=== PATIENT | female | born 1975 | race Caucasian/White ===

== ENCOUNTER 2016-10-04 14:18 | Emergency (ER) | payer MEDICAID ==
[~2016-10-04] VITALS: Ht 165.1 cm; Wt 89.4 kg
[~2016-10-04 14:18] MED LIST: TRAM50TA2
[2016-10-04 14:31] VITALS: BP 136/68; PULSE 84; RESP 15; TEMP 97.8; O2SAT 97
--- NOTE | 2016-10-04 15:54 | NUR ---
BROUGHT BACK TO BED #6 AND REPORT GIVEN TO LUANNE
--- NOTE | 2016-10-04 16:15 | NUR ---
Pt came into the ER in stable condition. Pt c/o headache and dizziness x3 wks. Pt stated that is under a lot of stress at work. Pt stated that she was at a staff meeting and felt like she was going to pass out. Pt denies having any medical condition at this time time. Pt stated that she has been drinking more water than usually to help with hydration. -sob -chest pain. No acute distress noted at this time, will continue to monitor
--- NOTE | 2016-10-04 16:29 | NUR ---
ER at bedside examining patient.
[2016-10-04 16:47] LABS: BASOPHILS % (AUTO) 0.6 % (0.0-2.0); EOSINOPHILS # (AUTO) 0.3 K/uL (0.0-0.4); EOSINOPHILS % (AUTO) 3.6 % (0.0-4.0); HEMATOCRIT 38.1 % (36-48); LYMPHOCYTES # (AUTO) 2.1 K/uL (1.0-5.5); LYMPHOCYTES % (AUTO) 28.2 % (20.5-51.5); MEAN CORPUSCULAR HEMOGLOBIN 30 pg (27-31); MEAN CORPUSCULAR HGB CONC 34 % (32-36); MEAN CORPUSCULAR VOLUME 86 fL (79.0-98.0); MONOCYTES # (AUTO) 0.6 K/uL (0.0-1.0); MONOCYTES % (AUTO) 8.4 % (1.7-9.3); NEUTROPHILS # (AUTO) 4.6 K/uL (1.8-7.7); NEUTROPHILS % (AUTO) 59.2 % (40.0-70.0); PLATELET COUNT (AUTO) 203 K/uL (130-430); RED BLOOD CELL COUNT(AUTO) 4.41 MIL/uL (4.2-6.2); RED CELL DISTRIBUTION WIDTH 13.2 % (9.0-15.0); WHITE BLOOD COUNT (AUTO) 7.6 K/uL (4.8-10.8)
[2016-10-04] MEDS ORDERED: KETOROLAC TROMETHAMINE 60 MG/2 ML VIAL IM ONE (17:00)
[2016-10-04] MEDS ORDERED: PROMETHAZINE HCL 25 MG/ML AMP IM ONE (17:00)
[2016-10-04 17:43] LABS: CALCIUM 8.6 mg/dL (8.4-11.0); CREATININE 0.78 mg/dL (0.55-1.30); POTASSIUM 3.9 mmol/L (3.5-5.1)
[2016-10-04 17:48] LABS: ALBUMIN 3.6 g/dL (3.4-4.8); TOTAL BILIRUBIN 0.2 mg/dL (0.0-1.0); TOTAL PROTEIN, SERUM 6.7 g/dL (6.4-8.3)
[2016-10-04 18:06] VITALS: BP 132/82; PULSE 89; RESP 15; TEMP 97.8; O2SAT 97
--- NOTE | 2016-10-04 18:06 | NUR ---
Patient given written and verbal discharge instructions and verbalizes understanding. ER MD Anders discussed with patient the results and treatment provided. Patient in stable condition. ID arm band removed. Rx of Tramadol given. Patient educated on pain management and to follow up with PMD. Pain Scale 0/10. Opportunity for questions provided and answered.
== END 2016-10-04 18:06 | disposition home or self-care (01) ==
LOC: SED 14:18
DX: G43.909 Migraine, unspecified, not intractable, without status migrainosus (principal); R42 Dizziness and giddiness
CPT/HCPCS: 36415; 70450; 80053; 81025; 85025; 93005; 96372; 99285; J1885; J2550

== ENCOUNTER 2017-02-04 20:24 | Emergency (ER) | payer MEDICAID ==
[~2017-02-04] VITALS: Ht 167.6 cm; Wt 72.6 kg
[2017-02-04 20:30] VITALS: BP_SYST 147
--- NOTE | 2017-02-04 20:35 | NUR ---
Patient to ER bed 8 to gown for evaluation. Side rails up. Report given to Kinza HUNTLEY.
[2017-02-04] MEDS ORDERED: DEXAMETHASONE SOD PHOSPHATE 10 MG/ML VIAL IM ONE (20:45)
[2017-02-04] MEDS ORDERED: PENICILLIN G BENZATHINE 1.2 MMU/2 ML SYR IM ONE (20:45)
[2017-02-04] MEDS ORDERED: IBUPROFEN 800 MG TABLET PO ONE (20:45)
--- NOTE | 2017-02-04 20:45 | NUR ---
MICHAEL Larsen at bedside examining patient.
--- NOTE | 2017-02-04 20:45 | NUR ---
Pt AOx4, ambulatory, presents to ED with complaint of sore throat x4 days. Pt states episodes of fever and chills. Currently taking Advil for pain. Pain 5/10 per pt. No acute distress noted. Will continue to monitor.
--- NOTE | 2017-02-04 21:35 | NUR ---
No adverse reactions noted after medications administered. Will continue to monitor.
[2017-02-04 21:40] VITALS: BP_SYST 132
--- NOTE | 2017-02-04 21:40 | NUR ---
Patient given written and verbal discharge instructions and verbalizes understanding. ER MD discussed with patient the results and treatment provided. Patient in stable condition. ID arm band removed. Rx of Motrin and Medrol Dosepak given. Patient educated on pain management and to follow up with PMD. Pain Scale 2/10 tolerable to patient. Opportunity for questions provided and answered.
== END 2017-02-04 21:40 | disposition home or self-care (01) ==
LOC: SED 20:24
DX: J02.9 Acute pharyngitis, unspecified (principal); G43.909 Migraine, unspecified, not intractable, without status migrainosus
CPT/HCPCS: 81025; 96372; 99284; J0561; J1100

== ENCOUNTER 2017-03-17 19:43 | Emergency (ER) | payer MEDICAID ==
[~2017-03-17] VITALS: Ht 165.1 cm; Wt 87.1 kg
[2017-03-17 20:49] VITALS: BP_SYST 126
[2017-03-17 21:35] LABS: BILIRUBIN,URINE NEGATIVE (NEGATIVE); BLOOD, URINE 3+ (NEGATIVE); CLARITY/URINE SL CLOUDY (CLEAR); COLOR,URINE RED (YELLOW); GLUCOSE,URINE NEGATIVE (NEGATIVE); KETONES,URINE NEGATIVE (NEGATIVE); LEUKOCYTE ESTERASE ,URINE NEGATIVE (NEGATIVE); NITRITE, URINE NEGATIVE (NEGATIVE); PROTEIN URINE 1+ (NEGATIVE); UROBILINOGEN,URINE 0.2 (0.2-1.0)
[2017-03-17 21:37] LABS: BACTERIA,URINE FEW /HPF (None Seen); MUCUS,URINE None Seen /LPF (None Seen); RBC,URINE >100 /HPF (0-3); WBC,URINE 0-3 /HPF (0-3)
[2017-03-17] MEDS ORDERED: KETOROLAC TROMETHAMINE 60 MG/2 ML VIAL IM ONE (23:30)
[2017-03-18 01:33] VITALS: BP_SYST 140
== END 2017-03-18 01:33 | disposition home or self-care (01) ==
LOC: SED 19:43
DX: M54.5 Low back pain (principal); R03.0 Elevated blood-pressure reading, without diagnosis of hypertension; G43.909 Migraine, unspecified, not intractable, without status migrainosus
CPT/HCPCS: 72131; 81000; 81025; 96372; 99285; J1885

== ENCOUNTER 2022-08-23 13:50 | Emergency (ER) | payer SELFPAY ==
[~2022-08-23] VITALS: Ht 165.1 cm; Wt 97.5 kg
[2022-08-23 13:57] VITALS: BP_SYST 144
[2022-08-23] MEDS ORDERED: predniSONE 20 MG TABLET PO ONE (15:30)
[2022-08-23] MEDS ORDERED: IPRATROPIUM/ALBUTEROL SULFATE 3 ML AMPUL.NEB (DUONEB) INH ONE (15:30)
[2022-08-23 16:10] LABS: BILIRUBIN,URINE NEGATIVE (NEGATIVE); BLOOD, URINE 3+ (NEGATIVE); CLARITY/URINE CLEAR (CLEAR); GLUCOSE,URINE NEGATIVE (NEGATIVE); KETONES,URINE NEGATIVE (NEGATIVE); LEUKOCYTE ESTERASE ,URINE NEGATIVE (NEGATIVE); NITRITE, URINE NEGATIVE (NEGATIVE); PH,URINE 6.5 (5.0-8.0); PROTEIN URINE NEGATIVE (NEGATIVE); UROBILINOGEN,URINE 0.2 (0.2-1.0)
[2022-08-23 16:31] LABS: COLOR,URINE STRAW (YELLOW)
[2022-08-23] MEDS ORDERED: ALBMDI INH (16:42)
[2022-08-23] MEDS ORDERED: PRED20TA PO (16:42)
[2022-08-23] MEDS ORDERED: GUAI-723 PO (16:43)
[2022-08-23] MEDS ORDERED: CETI1TAB2 PO (16:43)
[2022-08-23] MEDS ORDERED: BENZ100C92 PO (16:43)
[2022-08-23 16:54] LABS: BACTERIA,URINE FEW /HPF (None Seen); MUCUS,URINE None Seen /LPF (None Seen); WBC,URINE 0-3 /HPF (0-3)
[2022-08-23 17:17] VITALS: BP_SYST 144
== END 2022-08-23 17:15 | disposition home or self-care (01) ==
LOC: SED 13:50
DX: J20.9 Acute bronchitis, unspecified (principal); R05.9 Cough, unspecified; R06.02 Shortness of breath; R51.9 Headache, unspecified; Z79.899 Other long term (current) drug therapy; Z20.822 Contact with and (suspected) exposure to COVID-19
CPT/HCPCS: 99284; 71045; 87426; 81000; 36415; 94640; 94760; 87804 ×2; J7512